=== PATIENT | male | born 1995 | race Caucasian/White ===

== ENCOUNTER 2017-09-09 13:32 | Day surgery (SDC) | payer BC ==
[2017-09-01 13:03] VITALS: BMI 29.9
[~2017-09-09 13:32] MED LIST: DEXAMETHASONE SOD PHOSPHATE 10 MG/ML 1 ML VIAL IV ONE; HEPARIN SODIUM,PORCINE 5,000 UNIT/ML 1 ML VIAL SQ ONE; LACTATED RINGERS 1,000 ML IV SCH; MIDAZOLAM 2 MG/2 ML VIAL IV PRN; SCOPOLAMINE 1.5MG/72HR PATCH TRANSDERM ONE; ceFAZolin IN SWFI 2 GM/20 ML SYRINGE IVP ONE; metroNIDAZOLE-NS PMX 500 MG in SALINE 1 100ML.BAG IVPB ONE
[2017-09-09] MEDS ORDERED: LIDOCAINE 1% 20 ML VIAL (10MG/ML) FOR IV START INTRADERMA ONE (15:25)
[2017-09-09] MEDS: ONDANSETRON 4 MG/2 ML VIAL IVP ONE ×2 (15:25→18:50)
--- NOTE | 2017-09-09 16:45 | P.GSHP ---
History of Present Illness H&P Date: 09/09/17 CHIEF COMPLAINT: Pilonidal cyst HISTORY OF PRESENT ILLNESS: The patient is a 22 year-old male with history of current pilonidal cyst. He presents today for surgical excision. PAST MEDICAL HISTORY: Please see list. PAST SURGICAL HISTORY: Please see list. MEDICATIONS: Please see list. ALLERGIES: Please see list. SOCIAL HISTORY: History of tobacco use. FAMILY HISTORY: No reports of Crohn disease or ulcerative colitis. REVIEW OF ORGAN SYSTEMS: CONSTITUTIONAL: No reports of fevers or chills. GI: Denies any blood in stools or constipation. PHYSICAL EXAM: VITAL SIGNS: Stable Musculoskeletal: No clubbing cyanosis or edema. SKIN: Pilonidal cyst decreased from 3-1/2 cm to 1 cm above gluteal cleft. GENERAL: Well developed and in no acute distress. Pleasant. HEENT: No sclera icterus. Extraocular movements grossly intact. Moist buccal mucosa. Head is atraumatic, normocephalic. Hears conversational speech. No nasal drainage. NECK: Supple without lymphadenopathy. No JV distention. CHEST: Non-labored respirations and equal bilateral excursions. CARDIOVASCULAR: Regular rate and rhythm. Palpable 2+ radial pulses. ABDOMEN: Soft. Non-tender. Nondistended. NEUROLOGIC: No focal or lateralizing signs. PSYCH: Appropriate affect. Alert and oriented to person, place and time. ASSESSMENT: 1. Recurrent pilonidal cyst. PLAN: 1. Will proceed of excision of pilonidal cyst. 2. DVT prophylaxis. 3. Antibiotic prophylaxis. Past Medical History Additional Past Medical History / Comment(s): R shoulder injury, states has some limited movement. History of Any Multi-Drug Resistant Organisms: None Reported Past Surgical History: Appendectomy, Ear Surgery Past Anesthesia/Blood Transfusion Reactions: No Reported Reaction Smoking Status: Current every day smoker - Past Family History Mother Family Medical History: No Reported History Medications and Allergies Home Medications Medication Instructions Recorded Confirmed Type Citalopram Hydrobromide [CeleXA] 20 mg PO HS 09/01/17 09/01/17 History Sulfamethoxazole/Trimethoprim 1 each PO DAILY 09/01/17 09/01/17 History [Bactrim DS 800-160 mg] Allergies Allergy/AdvReac Type Severity Reaction Status Date / Time No Known Allergies Allergy Verified 09/09/17 15:01
[2017-09-09] MEDS ORDERED: MIDAZOLAM 2 MG/2 ML VIAL ONE (16:58)
[2017-09-09] MEDS ORDERED: fentaNYL (PF) 50 MCG/ML 2 ML AMP ONE (16:58)
[2017-09-09] MEDS ORDERED: LIDOCAINE 1% INJ 10MG/ML (20 ML MDV) ONE (16:58)
[2017-09-09] MEDS ORDERED: SUCCINYLCHOLINE CHLORIDE 100 MG/5 ML SYR IV ONE (16:58)
[2017-09-09] MEDS ORDERED: PROPOFOL 10 MG/ML 20 ML VIAL IV ONE (16:58)
[2017-09-09] MEDS ORDERED: BUPIVACAINE (PF) 0.5% 30 ML VIAL SQ ONE (17:26)
[2017-09-09] MEDS ORDERED: LACTATED RINGERS 1,000 ML IV ONE (17:43)
--- NOTE | 2017-09-09 18:21 | P.PCN ---
Date of Procedure: 09/09/17 Preoperative Diagnosis: Recurrent pilonidal cyst, obesity, history of tobacco use Postoperative Diagnosis: Same Procedure(s) Performed: 1. Excision of pilonidal cyst 5 x 8 cm 2. Complex closure of pilonidal cyst excision 8 cm Anesthesia: GETA, local Surgeon: Mili Bee Estimated Blood Loss (ml): 30 Pathology: other (Aerobic and anaerobic cultures of pilonidal cyst, pilonidal cyst) Condition: stable Disposition: same day Operative Findings: Complex closure with wide undermining and multiple layer closure using Dermabond tape with Tegaderm and [place] drain cut to 9 cm exiting via superior portion of wound
[2017-09-09 18:32] VITALS: TEMP 97
[2017-09-09] MEDS ORDERED: KETOROLAC 30 MG/ML 1 ML VIAL IVP ONE (18:44)
[2017-09-09] MEDS: MORPHINE SULFATE 4 MG/ML SYRINGE IV PRN ×2 (18:45→18:50)
[2017-09-09 18:49] VITALS: BP 133/63
[2017-09-09] MEDS ORDERED: HYDROcodone/APAP 5-325MG 1 EACH TAB PO ONE (19:11)
[2017-09-09 19:22] VITALS: PULSE 87; RESP 16
--- NOTE | 2017-09-28 22:34 | P.OP ---
Date of Procedure: 09/09/17 Description of Procedure: Date of Procedure: 09/09/17 SURGEON: MILI BEE MD BOTTOM MAN: None. PREOPERATIVE DIAGNOSES: 1. Complicated pilonidal cyst. 2. Tobacco abuse. 3. Depression. 4. Obesity. POSTOPERATIVE DIAGNOSES: 1. Complicated pilonidal cyst. 2. Tobacco abuse. 3. Depression. 4. Obesity. Procedure(s) Performed: 1. Excision of pilonidal cyst to fascia, 5 x 8 cm 2. Complex closure of pilonidal cyst excision 8 cm ANESTHESIA: GETA, local ESTIMATED BLOOD LOSS: 30 mL SPECIMENS REMOVED: 1. Aerobic and anaerobic cultures of pilonidal cyst 2. Pilonidal cyst COMPLICATIONS: None. Condition: stable Disposition: same day INDICATIONS: The patient is a 22-year-old male who presents with failed outpatient management of pilonidal cyst. Surgical intervention was described. Benefits and risks of immediate drainage was reviewed including bleeding, infection, cosmetic deformity, need for further surgery, for which informed consent was obtained. DESCRIPTION OF PROCEDURE: The patient was brought to the operating room, laid in supine position. After general induction, the patient was repositioned to the prone jackknife position with the buttocks spread apart. The lower back and buttocks were prepped and draped in standard sterile fashion. Prior to incision, a timeout protocol was confirmed with surgical team regarding patient's name, procedure to be performed, including preoperative medications. A cyst of 6 cm was palpated just above the gluteal cleft of the midline. A longitudinal excision of 5 x 8 cm was made after localizing the skin. The incision was deepened to the fascia for complete resection of pilonidal cyst. Aerobic and anaerobic cultures were obtained. Bleeding was controlled with electro-Bovie cautery. Next, a total of 3 L of warm normal saline pulse lavage was used for mechanical debridement along the entire pocket of the wound. The wound was mobilized to allow for closure of the large defect. Subfascial closure were performed using 0 Vicryl. Next along the subcutaneous tissue, additional 0 Vicryl was placed. Quarter-inch [place] drain was placed along the depth of the wound and tacked to the skin using 2-0 nylon. Of the skin, 4-0 Monocryl running suture was performed in a subcuticular fashion. Dermabond tape with Dermabond liquid was applied over the length of the wound and 8 cm in length for a 4 layer closure. Next, 4 x 4 gauze and Tegaderm was placed. The patient was awoken from anesthesia and transferred to the postanesthesia care in stable condition. Please note that the instrument, sponge, and needle count was verified correct by surgical product sales consultant. Wound care instructions were reviewed with the patients family. FINDINGS: 1. Complex closure with wide undermining and multiple layer closure using Dermabond tape with Tegaderm and [place] drain cut to 9 cm exiting via superior portion of wound Plan - Discharge Summary New Discharge Prescriptions: New HYDROcodone/APAP 5-325MG [[place] 5-325] 1 tab PO Q6HR PRN #20 tab PRN Reason: Pain Ibuprofen [Motrin] 600 mg PO Q8HR PRN #30 tab PRN Reason: Pain No Action Citalopram Hydrobromide [CeleXA] 20 mg PO HS Sulfamethoxazole/Trimethoprim [Bactrim DS 800-160 mg] 1 each PO DAILY Discharge Medication List Citalopram Hydrobromide [CeleXA] 20 mg PO HS 09/01/17 [History] Sulfamethoxazole/Trimethoprim [Bactrim DS 800-160 mg] 1 each PO DAILY 09/01/17 [ History] HYDROcodone/APAP 5-325MG [[place] 5-325] 1 tab PO Q6HR PRN #20 tab 09/09/17 [Rx] Ibuprofen [Motrin] 600 mg PO Q8HR PRN #30 tab 09/09/17 [Rx] Follow up Appointment(s)/Referral(s): Mili Bee MD [STAFF PHYSICIAN] - 09/13/17 5:00 pm Patient Instructions/Handouts: *Surgery [facility] - (Anesthesia) Discharge Instructions Outpatient Surgery, Pilonidal Cyst (GEN) Activity/Diet/Wound Care/Special Instructions: 1. May change only external dressing including Tegaderm and 4 x 4 gauze only if moderately soiled. 2. Do not remove clear tape on skin. 3. Cleanse skin incision only with hydrogen peroxide and then cover with Tegaderm and 4 x 4 gauze as directed. 4. If wound ruptures or tears open, use packing gently with iodoform 6 inch, daily. NO BATH TUB SOAKS! KEEP DRESSING ALONG BACK DRY! Do not bend over or squat. Discharge Disposition: HOME SELF-CARE
== END 2017-09-09 19:40 | disposition home or self-care (01) ==
LOC: OR 13:32
PROVIDERS: ATTEND Surgery Plastic and Reconstructive Surgery
DX: L05.91 Pilonidal cyst without abscess (principal); E66.9 Obesity, unspecified; Z68.30 Body mass index [BMI] 30.0-30.9, adult; F17.210 Nicotine dependence, cigarettes, uncomplicated; F41.9 Anxiety disorder, unspecified; F32.9 Major depressive disorder, single episode, unspecified; Z79.2 Long term (current) use of antibiotics; Z79.899 Other long term (current) drug therapy
CPT/HCPCS: 88304; 87070; 87205; 87075; 13101; 13102; 11772; J2250; J2270; J1644; J1100; J2405; J2001; J3010; J1885; J0330; J2704; J0690

== ENCOUNTER 2018-07-05 07:17 | Emergency (ER) | payer BC ==
[2018-07-05 07:24] VITALS: BP 115/76; PULSE 88; RESP 20; TEMP 98
--- NOTE | 2018-07-05 08:03 | ED ---
General Adult HPI - General Chief complaint: Skin/Abscess/Foreign Body Stated complaint: Cyst Time Seen by Provider: 07/05/18 07:29 Source: patient, RN notes reviewed, old records reviewed Mode of arrival: ambulatory Limitations: no limitations - History of Present Illness Initial comments: 23-year-old male presenting for evaluation of pain and swelling over his tailbone. Patient has history of previous pilonidal cyst which was removed in September of this year. States that over the past one week has had increased pain in this area as well as some mild swelling. Denies purulent drainage. Denies erythema. Denies fever or chills. Patient is otherwise healthy with no chronic medical problems. No abdominal pain. No pain in his rectum or anus, no pain with defecation. - Related Data Home Medications Medication Instructions Recorded Confirmed Citalopram Hydrobromide [CeleXA] 20 mg PO HS 09/01/17 09/01/17 Sulfamethoxazole/Trimethoprim 1 each PO DAILY 09/01/17 09/01/17 [Bactrim DS 800-160 mg] Previous Rx's Medication Instructions Recorded HYDROcodone/APAP 5-325MG [[place] 1 tab PO Q6HR PRN #20 tab 09/09/17 5-325] Ibuprofen [Motrin] 600 mg PO Q8HR PRN #30 tab 09/09/17 Ibuprofen [Motrin] 600 mg PO Q8HR PRN #24 tab 07/05/18 Sulfamethox-Tmp 800-160Mg [Bactrim 1 tab PO Q12HR #28 tab 07/05/18 DS 800-160 mg] Allergies Allergy/AdvReac Type Severity Reaction Status Date / Time No Known Allergies Allergy Verified 07/05/18 07:24 Review of Systems ROS Statement: Those systems with pertinent positive or pertinent negative responses have been documented in the HPI. ROS Other: All systems not noted in ROS Statement are negative. Past Medical History Additional Past Medical History / Comment(s): R shoulder injury, states has some limited movement. History of Any Multi-Drug Resistant Organisms: None Reported Past Surgical History: Appendectomy, Ear Surgery Additional Past Surgical History / Comment(s): pilonidal cyst Past Anesthesia/Blood Transfusion Reactions: No Reported Reaction Past Psychological History: No Psychological Hx Reported Smoking Status: Current every day smoker Past Alcohol Use History: None Reported Past Drug Use History: None Reported - Past Family History Mother Family Medical History: No Reported History General Exam Limitations: no limitations General appearance: alert, in no apparent distress Head exam: Present: atraumatic, normocephalic Eye exam: Present: normal appearance, EOMI ENT exam: Present: normal exam Respiratory exam: Present: normal lung sounds bilaterally. Absent: respiratory distress, wheezes Cardiovascular Exam: Present: regular rate, normal rhythm GI/Abdominal exam: Present: soft. Absent: distended, tenderness Extremities exam: Present: normal inspection, normal capillary refill Back exam: Present: other (Previous pilonidal incision intact, no erythema, no induration or fluctuance. There is some tenderness at the most inferior portion of the incision. No erythema or tenderness near the anus.) Neurological exam: Present: alert, oriented X3 Psychiatric exam: Present: normal affect, normal mood Course Vital Signs 07/05/18 07:21 Temperature 98.0 F Pulse Rate 88 Respiratory 20 Rate Blood Pressure 115/76 O2 Sat by Pulse 99 Oximetry Medical Decision Making - Medical Decision Making 23-year-old male with pain over her previous pilonidal incision. There is concern for recurrent abscess in this region although there is no induration, no erythema, no significant swelling at this time. There is tenderness on exam. Case is discussed with the patient's surgeon Dr. Clement, patient will be started on antibiotics and Motrin for pain control. Patient will apply warm compresses, warm soaks. He will follow-up as an outpatient. Disposition Clinical Impression: Pilonidal cyst with abscess Disposition: HOME SELF-CARE Condition: Good Instructions: Pilonidal Cyst (ED) Prescriptions: Ibuprofen [Motrin] 600 mg PO Q8HR PRN #24 tab PRN Reason: Pain Sulfamethox-Tmp 800-160Mg [Bactrim DS 800-160 mg] 1 tab PO Q12HR #28 tab Is patient prescribed a controlled substance at d/c from ED?: No Referrals: Yin Russell DO [Primary Care Provider] - 1-2 days Mili Bee MD [STAFF PHYSICIAN] - 1-2 days Time of Disposition: 08:02
== END 2018-07-05 08:10 | disposition home or self-care (01) ==
LOC: EC 07:17
DX: L05.01 Pilonidal cyst with abscess (principal); F17.200 Nicotine dependence, unspecified, uncomplicated; Z79.899 Other long term (current) drug therapy
CPT/HCPCS: 99283

== ENCOUNTER → 2020-11-21 | Outpatient (CLI) | payer BC ==
--- NOTE | 2020-11-21 14:34 | CT ---
EXAMINATION TYPE: CT soft tissue neck wo con DATE OF EXAM: 11/21/2020 COMPARISON: None HISTORY: right side swelling inferior to ear and posterior to mandible CT DLP: 526.[address] of the neck was performed from the skull base through the lung apices. The lack of cont rast limits evaluation. AIRWAY: The supraglottic, glottic, and subglottic portions of the airway appear patent and free of mass. SALIVARY GLANDS: The site of clinical concern corresponds to the right parotid region. At the BB site There is a solid nodule measuring 1.2 cm as well as an adjacent nodule measuring 8 mm. These nodules appear to be external to the left parotid gland and may reflect prominent lymph nodes. Exophytic int raparotid lesions are difficult to exclude however. Correlate clinically. Submandibular glands appear unremarkable. THYROID GLAND: No nodules or masses seen. LYMPH NODES: There are subcentimeter lymph nodes within the right internal jugular chain. There is a 1.1 cm lymph node left internal jugular chain. No additional adenopathy appreciated. LUNG APICES: No nodule or mass is seen. OTHER: Vascular structures are patent. No significant degenerative change of the cervical spine. N o abscess seen. IMPRESSION: 1. Solid nodules at the BB site which corresponds to the lower pole of the parotid gland. These nodul es appear to be external to the parotid gland and may reflect prominent lymph nodes. There is also a prominent lymph node left internal jugular chain. Intraparotid lesions are difficult to exclude howev er. Clinical correlation advised.
== END | disposition home or self-care (01) ==
LOC: RADCTMAIN 13:49
PROVIDERS: ATTEND Family Medicine
DX: K11.8 Other diseases of salivary glands (principal)
CPT/HCPCS: 70490

== ENCOUNTER 2022-03-31 16:29 | Emergency (ER) | payer BC, OTHER ==
[2022-03-31 16:58] VITALS: BP 107/59; PULSE 81; RESP 20; TEMP 98.6
--- NOTE | 2022-03-31 17:10 | ED ---
General Adult HPI - General Chief complaint: Recheck/Abnormal Lab/Rx Stated complaint: drug test Time Seen by Provider: 03/31/22 17:01 Source: patient Mode of arrival: ambulatory Limitations: no limitations - History of Present Illness Initial comments: Dictation was produced using [employer] dictation software. please excuse any grammatical, word or spelling errors. Chief Complaint: 27-year-old male presents emergency department for drug testing History of Present Illness: She is 19-year-old male who presents emergency Department from work for drug testing. Patient dropped a palate. Her work protocol patient needs to get drug tested. There is a 10 point drug screen and breath alcohol test. Patient denies any drug use. He has no complaints. The ROS documented in this emergency department record has been reviewed and confirmed by me. Those systems with pertinent positive or negative responses have been documented in the HPI. All other systems are other negative and/or noncontributory. PHYSICAL EXAM: General Impression: Alert and oriented x3, not in acute distress HEENT: Normocephalic atraumatic, extra-ocular movements intact, pupils equal and reactive to light bilaterally, mucous membranes moist. Cardiovascular: Heart regular rate and rhythm Chest: Able to complete full sentences, no retractions, no tachypnea Musculoskeletal: Pulses present and equal in all extremities, no peripheral edema Motor: no focal deficits noted Neurological: CN II-XII grossly intact, no focal motor or sensory deficits noted Skin: Intact with no visualized rashes Psych: Normal affect and mood ED course: 27 y Old male presents emergency department for drug testing and breath alcohol test per her work protocol after incident at work. Patient has no complaints. Physical examination is benign. Vital signs are stable. Drug test and breath ORDERED. Patient be discharged. - Related Data Home Medications Medication Instructions Recorded Confirmed Citalopram Hydrobromide [CeleXA] 20 mg PO HS 09/01/17 09/01/17 Sulfamethoxazole/Trimethoprim 1 each PO DAILY 09/01/17 09/01/17 [Bactrim DS 800-160 mg] Previous Rx's Medication Instructions Recorded HYDROcodone/APAP 5-325MG [[place] 1 tab PO Q6HR PRN #20 tab 09/09/17 5-325] Ibuprofen [Motrin] 600 mg PO Q8HR PRN #30 tab 09/09/17 Ibuprofen [Motrin] 600 mg PO Q8HR PRN #24 tab 07/05/18 Sulfamethox-Tmp 800-160Mg [Bactrim 1 tab PO Q12HR #28 tab 07/05/18 DS 800-160 mg] Allergies Allergy/AdvReac Type Severity Reaction Status Date / Time No Known Allergies Allergy Verified 03/31/22 16:58 Review of Systems ROS Statement: Those systems with pertinent positive or pertinent negative responses have been documented in the HPI. ROS Other: All systems not noted in ROS Statement are negative. Past Medical History Additional Past Medical History / Comment(s): R shoulder injury, states has some limited movement. History of Any Multi-Drug Resistant Organisms: None Reported Past Surgical History: Appendectomy, Ear Surgery Additional Past Surgical History / Comment(s): pilonidal cyst Past Anesthesia/Blood Transfusion Reactions: No Reported Reaction Past Psychological History: No Psychological Hx Reported Smoking Status: Current every day smoker Past Alcohol Use History: None Reported Past Drug Use History: None Reported - Past Family History Mother Family Medical History: No Reported History General Exam Limitations: no limitations Course Vital Signs 03/31/22 16:56 Temperature 98.6 F Pulse Rate 81 Respiratory 20 Rate Blood Pressure 107/59 O2 Sat by Pulse 99 Oximetry Disposition Clinical Impression: Encounter for blood-alcohol and blood-drug test Disposition: HOME SELF-CARE Condition: Good Is patient prescribed a controlled substance at d/c from ED?: No Referrals: Yin Russell DO [Primary Care Provider] - 1-2 days Time of Disposition: 17:10
== END 2022-03-31 18:08 | disposition home or self-care (01) ==
LOC: EC 16:29
DX: Z02.83 Encounter for blood-alcohol and blood-drug test (principal); F17.200 Nicotine dependence, unspecified, uncomplicated; Z79.899 Other long term (current) drug therapy
CPT/HCPCS: 99281

== ENCOUNTER 2024-02-25 20:15 | Emergency (ER) | payer OTHER ==
[2024-02-25 20:27] VITALS: RESP 18; TEMP 98.2
--- NOTE | 2024-02-25 21:32 | ED ---
Recheck HPI - General Chief Complaint: Recheck/Abnormal Lab/Rx Stated Complaint: 10 panel, [facility] Time Seen by Provider: 02/25/24 20:31 Source: patient, RN notes reviewed Mode of arrival: ambulatory Limitations: no limitations - History of Present Illness Initial Comments: Is a 29-year-old male presents emergency department chief complaint of a need for injection from work. 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 Patient denies any acute complaints at this time. 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 - Related Data Home Medications Medication Instructions Recorded Confirmed Citalopram Hydrobromide [CeleXA] 20 mg PO HS 09/01/17 09/01/17 Sulfamethoxazole/Trimethoprim 1 each PO DAILY 09/01/17 09/01/17 [Bactrim DS 800-160 mg] Previous Rx's Medication Instructions Recorded HYDROcodone/APAP 5-325MG [Mcdonald 1 tab PO Q6HR PRN #20 tab 09/09/17 5-325] Ibuprofen [Motrin] 600 mg PO Q8HR PRN #30 tab 09/09/17 Ibuprofen [Motrin] 600 mg PO Q8HR PRN #24 tab 07/05/18 Sulfamethox-Tmp 800-160Mg [Bactrim 1 tab PO Q12HR #28 tab 07/05/18 DS 800-160 mg] Allergies Allergy/AdvReac Type Severity Reaction Status Date / Time No Known Allergies Allergy Verified 02/25/24 20:27 Review of Systems ROS Statement: Those systems with pertinent positive or pertinent negative responses have been documented in the HPI. ROS Other: All systems not noted in ROS Statement are negative. Past Medical History Additional Past Medical History / Comment(s): R shoulder injury, states has some limited movement. History of Any Multi-Drug Resistant Organisms: None Reported Past Surgical History: Appendectomy, Ear Surgery Additional Past Surgical History / Comment(s): pilonidal cyst Past Anesthesia/Blood Transfusion Reactions: No Reported Reaction Past Psychological History: No Psychological Hx Reported Smoking Status: Current every day smoker Past Alcohol Use History: None Reported Past Drug Use History: None Reported - Past Family History Mother Family Medical History: No Reported History General Exam Limitations: no limitations General appearance: alert, in no apparent distress Head exam: Present: atraumatic, normocephalic, normal inspection Eye exam: Present: normal appearance, PERRL, EOMI. Absent: scleral icterus, conjunctival injection, periorbital swelling ENT exam: Present: normal exam, mucous membranes moist Neck exam: Present: normal inspection. Absent: tenderness, meningismus, lymphadenopathy Respiratory exam: Present: normal lung sounds bilaterally. Absent: respiratory distress, wheezes, rales, rhonchi, stridor Cardiovascular Exam: Present: regular rate, normal rhythm, normal heart sounds. Absent: systolic murmur, diastolic murmur, rubs, gallop, clicks GI/Abdominal exam: Present: soft, normal bowel sounds. Absent: distended, tenderness, guarding, rebound, rigid Extremities exam: Present: normal inspection, full ROM, normal capillary refill. Absent: tenderness, pedal edema, joint swelling, calf tenderness Back exam: Present: normal inspection Neurological exam: Present: alert, oriented X3, CN II-XII intact Psychiatric exam: Present: normal affect, normal mood Skin exam: Present: warm, dry, intact, normal color. Absent: rash Course Vital Signs 02/25/24 20:25 Temperature 98.2 F Pulse Rate 84 Respiratory 18 Rate Blood Pressure 105/70 O2 Sat by Pulse 97 Oximetry Medical Decision Making - Medical Decision Making Was pt. sent in by a medical professional or institution (, PA, BOXING TRAINER, urgent care, hospital, or [place] [facility] facility...) When possible be specific @ -No Did you speak to anyone other than the patient for history (EMS, parent, family, police, friend...)? What history was obtained from this source @ -No Did you review nursing and triage notes (agree or disagree)? Why? @ -I reviewed and agree with nursing and triage notes Were old charts reviewed (outside hosp., previous admission, EMS record, old EKG, old radiological studies, urgent care reports/EKG's, [place] [facility] facility records)? Report findings @ -No old charts were reviewed Differential Diagnosis (chest pain, altered mental status, abdominal pain women, abdominal pain men, vaginal bleeding, weakness, fever, dyspnea, syncope, headache, dizziness, GI bleed, back pain, seizure, CVA, palpatations, mental health, musculoskeletal)? @ -work place accident EKG interpreted by me (3pts min.). @ -none X-rays interpreted by me (1pt min.). @ -None done CT interpreted by me (1pt min.). @ -None done U/S interpreted by me (1pt. min.). @ -None done What testing was considered but not performed or refused? (CT, X-rays, U/S, labs)? Why? @ -None What meds were considered but not given or refused? Why? @ -None Did you discuss the management of the patient with other professionals (professionals i.e. DrGasper, PA, BOXING TRAINER, lab, RT, psych nurse, social human services assistants, skid worker, teacher, training officer, manager of case management)? Give summary @ -No Was smoking cessation discussed for >3mins.? @ -No Was critical care preformed (if so, how long)? @ -No Were there social determinants of health that impacted care today? How? (Homelessness, low income, unemployed, alcoholism, drug addiction, transportation, low edu. Level, literacy, decrease access to med. care, usp, rehab)? @ -No Was there de-escalation of care discussed even if they declined (Discuss DNR or withdrawal of care, Hospice)? DNR status @ -No What co-morbidities impacted this encounter? (DM, HTN, Smoking, COPD, CAD, Cancer, CVA, ARF, Chemo, Hep., AIDS, mental health diagnosis, sleep apnea, morbid obesity)? @ -None Was patient admitted / discharged? Hospital course, mention meds given and route, prescriptions, significant lab abnormalities, going to OR and other pertinent info. @ -Discharge. 29-year-old male with a workplace accident. Patient states that he was advised by his work to report to the emergency department for a temporal drug screen. Patient denies any acute injuries at this time this event. Complete physical examination with no acute findings. Patient has left drug sample here. He is stable for discharge. Discussed with Dr. Herbert Undiagnosed new problem with uncertain prognosis? @ -No Drug Therapy requiring intensive monitoring for toxicity (Heparin, Nitro, Insulin, Cardizem)? @ -No Were any procedures done? @ -No Diagnosis/symptom? @ -encounter for drug test, workplace accident Acute, or Chronic, or Acute on Chronic? @ -Acute Uncomplicated (without systemic symptoms) or Complicated (systemic symptoms)? @ -uncomplicated Side effects of treatment? @ -No Exacerbation, Progression, or Severe Exacerbation? @ -No Poses a threat to life or bodily function? How? (Chest pain, [place], [place], pneumonia, PE, COPD, DKA, ARF, appy, cholecystitis, CVA, Diverticulitis, Homicidal, Suicidal, threat to staff... and all critical care pts) @ -No Disposition Clinical Impression: Work place accident Disposition: HOME SELF-CARE Condition: Good Additional Instructions: Return to the emergency department for any new or worsening symptoms Is patient prescribed a controlled substance at d/c from ED?: No Referrals: Yin Russell DO [Primary Care Provider] - 1-2 days Time of Disposition: 21:32
[2024-02-25 21:44] VITALS: BP 128/75; PULSE 95
== END 2024-02-25 21:46 | disposition home or self-care (01) ==
LOC: EC 20:15
DX: Z04.2 Encounter for examination and observation following work accident (principal); F17.200 Nicotine dependence, unspecified, uncomplicated
CPT/HCPCS: 99282